=== PATIENT | male | born 1965 | race Caucasian/White ===

== ENCOUNTER 2023-01-02 12:31 | Day surgery (SDC) | payer BC ==
[~2023-01-02] VITALS: Ht 175.3 cm; Wt 141.8 kg
[~2023-01-02 12:31] MED LIST: ALLO300 PO
[2023-01-02] MEDS ORDERED: FISH OIL 1,0001 EA10 (13:08)
[2023-01-02] MEDS ORDERED: METF500 (13:08)
[2023-01-02] MEDS ORDERED: ATOR10 (13:08)
== END 2023-01-02 14:43 | disposition home or self-care (01) ==
LOC: ORSCSDS 12:31
PROVIDERS: Surgery
PROC: 0DBH8ZX Excision of Cecum, Via Natural or Artificial Opening Endoscopic, Diagnostic (ICD-10-PCS; principal; 2023-01-02 13:45)
PROC: 0DBN8ZX Excision of Sigmoid Colon, Via Natural or Artificial Opening Endoscopic, Diagnostic (ICD-10-PCS; principal; 2023-01-02 13:45)
DX: Z12.11 Encounter for screening for malignant neoplasm of colon (principal); D12.1 Benign neoplasm of appendix; K63.5 Polyp of colon; E11.9 Type 2 diabetes mellitus without complications; I10 Essential (primary) hypertension; G47.33 Obstructive sleep apnea (adult) (pediatric); Z79.84 Long term (current) use of oral hypoglycemic drugs; Z79.899 Other long term (current) drug therapy; Z87.891 Personal history of nicotine dependence
CPT/HCPCS: 82947; 88305; J2704; J7120